=== PATIENT | male | born 1965 | race Caucasian/White ===

== ENCOUNTER 2019-12-19 19:33 | Emergency (ER) | payer MEDICARE, MEDICAID, SELFPAY ==
[2019-12-19 19:40] VITALS: BP 134/68; PULSE 87; RESP 20; TEMP 36.4; O2SAT 100
--- NOTE | 2019-12-19 19:41 | ED.GENADULT ---
HPI - General Adult General Chief complaint: Unspecified Stated complaint: gb drain Source: patient and EMS Mode of arrival: EMS Limitations: no limitations History of Present Illness HPI narrative: Patient is a 54-year-old with a history of sleep apnea, bilateral lower extremity amputation, diabetes, who presents for evaluation of gallbladder drain. Patient with recent cholecystectomy at [facility], had a gallbladder drain placed, and this drain is set to be removed January 20. Patient states that the drain seem to nearly come out today. They put a cap on the drain. Patient has no abdominal pain. No nausea or vomiting. No fever or chills. No bleeding surrounding the site. Patient surgery done by Dr. Domínguez at [facility]. Related Data Allergies Allergy/AdvReac Type Severity Reaction Status Date / Time No Known Allergies Allergy Verified 12/19/19 19:48 Review of Systems Review of Systems: Narrative: CONSTITUTIONAL: Denies fever, chills, or sweats. EYES: Denies visual changes ENT: Denies rhinorrhea, congestion, sore throat, or otalgia. CARDIOVASCULAR: Denies chest pain, palpitations, or edema. RESPIRATORY: Denies cough or dyspnea. GASTROINTESTINAL: Denies abdominal pain, nausea, vomiting, or diarrhea. GENITOURINARY: Denies dysuria or hematuria. SKIN: Denies rash or itching. MUSCULOSKELETAL: Denies back pain, joint pain, or myalgia. NEUROLOGIC: Denies headache, numbness, or weakness. 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 EYES: PERRLA and EOMI. ENT: Nares clear, no rhinorrhea or epistaxis. Mucous membranes moist. NECK: Supple. CHEST: No respiratory distress, breathing even and non labored HEART: Regular rate, sinus rhythm ABDOMEN:Obese, non distended, non tender, ventral hernia, RUQ abd drain in place, no erythema, no bleeding, no excoriation, non tender, drain is capped EXTREMITIES: Normal range of motion. No edema. SKIN: Warm, dry, no rash. NEURO:No focal deficits. Alert and oriented x3 Course Course Emergency Course: Patient presented for evaluationof possible biliary drain dislodgment. At the time of assessment, the drain is in place. It is capped. There is no excoriation or bleeding. There is no surrounding cellulitic changes. Patient has no pain. The drain is supposed to stay in place until the end of December, at this point I do not feel like there is an emergent need for any imaging study. Patient would likely benefit from follow-up with his surgeon early next week, and I explained not to have any further intervention with the drain at this point. Contacted over to [facility] to arrange follow-up for the patient. Per radiology physician at that facility, the drain was supposed to be capped as he was not having any active drainage. He can still follow-up to have this removed the 26. There are no acute interventions that need to be done at this time. Patient was updated, stat facility updated, patient discharged back to facility. Vital Signs Vital signs: Vital Signs Temperature 36.4 C 12/19/19 19:40 Pulse Rate 87 12/19/19 19:40 Respiratory Rate 20 12/19/19 19:40 Blood Pressure 134/68 12/19/19 19:40 Pulse Oximetry 100 12/19/19 19:40 T
--- NOTE | 2019-12-19 21:06 | PC.NURSE ---
Addendum entered by Danay Sutton 12/20/19 06:21: [facility] CALLED AND SAID [facility] SHOULD BE HERE AT APPROXIMATELY 06:45 Addendum entered by Danay Sutton 12/20/19 04:28: 04:09: CALLED FOR UPDATED STATUS...ETA 05:45 Addendum entered by Danay Sutton 12/20/19 02:33: 0230: CALLED FOR UPDATED STATUS....ETA 0400 Addendum entered by Danay Sutton 12/20/19 00:44: 2305: CALLED FOR UPDATED STATUS....ETA 0030 0042: CALLED FOR UPDATED STATUS....ETA 0230 Original Note: CALLED [facility] TO TRANSPORT BACK TO FACILITY....ETA 2300
[2019-12-19 21:37] VITALS: BP 119/61; PULSE 80; RESP 20; O2SAT 99
[2019-12-20 06:50] VITALS: BP 112/61; PULSE 93; RESP 20; O2SAT 100
== END 2019-12-20 07:03 ==
PROVIDERS: Emergency Provider Emergency Medicine; PCP Family Medicine
DX: Z48.03 Encounter for change or removal of drains (principal); E11.9 Type 2 diabetes mellitus without complications; Z89.612 Acquired absence of left leg above knee; Z89.611 Acquired absence of right leg above knee; I48.91 Unspecified atrial fibrillation; J44.9 Chronic obstructive pulmonary disease, unspecified; Z87.891 Personal history of nicotine dependence; G47.33 Obstructive sleep apnea (adult) (pediatric)
CPT/HCPCS: 99282

== ENCOUNTER → 2020-02-24 17:28 | Emergency (ER) | payer MEDICARE, MEDICAID, SELFPAY | END | disposition left against medical advice (07) | LOC: ANHED 03-31 14:40 | PROVIDERS: Emergency Provider Emergency Medicine; PCP Family Medicine | DX: Z53.21 Procedure and treatment not carried out due to patient leaving prior to being seen by health care provider (principal) | CPT/HCPCS: 99199 ==

== ENCOUNTER 2023-07-10 07:18 | Emergency (ER) | payer OTHER, SELFPAY ==
[2023-07-10 07:14] VITALS: BP 128/77; PULSE 96; RESP 23; TEMP 36.4; O2SAT 100
[2023-07-10 07:25] VITALS: PULSE 98
--- NOTE | 2023-07-10 07:44 | ED.GENADULT ---
HPI - General Adult General Chief complaint: Wound/Laceration Stated complaint: wounds History of Present Illness HPI narrative: Patient is a 57-year-old male who presents the emergency department this morning due to bleeding pressure ulcer near the sacrum. Patient is coming in from an extended care facility as they could not control the bleeding and did not have a pressure dressing that fits him since the patient is overweight. Patient is currently denying any symptoms including pain in the area. There is small punctate wound overlying his sacrum which is not actively bleeding. Patient is unsure how long he has had this wound for. He is currently denying any additional symptoms including any chest pain, shortness of breath, nausea, vomiting, abdominal pain, dysuria, hematuria, constipation, diarrhea, melena, hematochezia, fevers or chills. Patient also denies any headaches, dizziness, lightheadedness, blurry visions, focal weakness, numbness and or tingling. There are no other modifying, alleviating, or precipitating factors at this time. Related Data Allergies Allergy/AdvReac Type Severity Reaction Status Date / Time No Known Allergies Allergy Verified 12/19/19 19:48 Review of Systems Review of Systems: All systems are reviewed and are negative unless stated otherwise in the HPI. [facility] Past Medical History Medical History Above knee amputation of left lower extremity Above knee amputation of right lower extremity Atrial fibrillation Bronchitis COPD (chronic obstructive pulmonary disease) Depression JANET (obstructive sleep apnea) Surgical History Surgical History History of tracheostomy Social History Social History Smoking status: Former smoker Tobacco type: cigarettes Alcohol intake: never Substance use: never Living arrangements: shelter Gender identity (if verbalized by the patient): Male Comments Patient denies a significant family history. Exam Narrative: General: Alert, awake, afebrile, in no acute distress. HEENT: PERRL, no rhinorrhea, no post nasal drip, oropharynx clear. Neck: Trachea midline, no JVD, no lymphadenopathy. Cardiovascular: Regular rate and rhythm, no murmurs, rubs or gallops, no peripheral edema. Respiratory: Clear to auscultation bilaterally, no tachypnea, no wheezing, no rhonchi, no rubs, no respiratory distress. Abdomen: Soft, nontender, nondistended, no rebound, no guarding, no peritoneal signs. Rectal: Small 3mm punctate wound overlying sacrum with no active bleeding. Musculoskeletal: No joint swelling or deformity, normal muscle tone. Skin: No rashes or petechia, no signs of infection. Psychiatric: Alert and oriented, normal behavior and judgment for situation. Neurological: Alert and oriented to person, place, and time. Follows all commands. No focal deficits, speech is clear and fluent. Course Vital Signs Vital signs: Vital Signs Temperature 97.5 F L 07/10/23 07:14 Pulse Rate 96 07/10/23 07:14 Respiratory Rate 23 H 07/10/23 07:14 Blood Pressure 128/77 07/10/23 07:14 Pulse Oximetry 100 07/10/23 07:14 Oxygen Delivery Nasal Cannula 07/10/23 07:14 Oxygen Flow Rate 3 07/10/23 07:14 Temperature 97.3 F L 07/10/23 08:39 Pulse Rate 102 H 07/10/23 08:39 Respiratory Rate 20 07/10/23 08:39 Blood Pressure 121/78 07/10/23 08:39 Pulse Oximetry 100 07/10/23 08:39 Oxygen Delivery Nasal Cannula 07/10/23 07:14 Oxygen Flow Rate 3 07/10/23 07:14 Medical Decision Making MDM Narrative Medical decision making narrative: The patient was evaluated by myself in the emergency department. History is obtained from patient who is an independent historian and physical exam was performed. External medical records were reviewed at this time. Wound was evaluated revea
[2023-07-10 08:39] VITALS: BP 121/78; PULSE 102; RESP 20; TEMP 36.3; O2SAT 100
== END 2023-07-10 09:45 ==
PROVIDERS: Emergency Provider Emergency Medicine; PCP Family Medicine
DX: L89.159 Pressure ulcer of sacral region, unspecified stage (principal); Z89.612 Acquired absence of left leg above knee; Z89.611 Acquired absence of right leg above knee; I48.91 Unspecified atrial fibrillation; J44.9 Chronic obstructive pulmonary disease, unspecified; G47.33 Obstructive sleep apnea (adult) (pediatric); E66.9 Obesity, unspecified; Z87.891 Personal history of nicotine dependence
CPT/HCPCS: 99282